=== PATIENT | female | born 2000 | race Two or more races ===

== ENCOUNTER 2024-04-18 15:55 | Emergency (ER) | payer MEDICAID ==
[~2024-04-18] VITALS: Ht 162.6 cm; Wt 65.9 kg
[2024-04-18 20:23] LABS: Basophils # (auto) 0 10 ^3/uL (0-0.2); Basophils % (auto) 0.2 % (0.0-2.0); Eosinophils # (auto) 0 10 ^3/uL (0-0.8); Eosinophils % (auto) 0.2 % (0.0-7.0); Hematocrit 41.3 % (36.0-46.0); Lymphocytes # (auto) 2.4 10 ^3/uL (0.4-5.4); Lymphocytes % (auto) 15.4 % (10.0-50.0); Mean Corpuscular Hemoglobin 31.4 pg (28.0-32.0); Mean Corpuscular Hgb Conc. 33.8 g/dL (32.0-36.0); Mean Corpuscular Volume 92.9 fL (80.0-100.0); Monocytes # (auto) 1.5 10 ^3/uL (0-1.3); Monocytes % (auto) 9.5 % (0.0-12.0); Neutrophils # (auto) 11.6 10 ^3/uL (1.6-8.6); Neutrophils % (auto) 74.7 % (37.0-80.0); Red Blood Cells 4.44 10^6/uL (4.0-5.20); Red Cell Distribution Width 12.8 % (11.8-14.3); White Blood Cell 15.5 10^3/uL (4.4-10.8)
[2024-04-18 20:36] LABS: Alanine Aminotransferase 26 U/L (7-40); Albumin 4.6 g/dL (3.2-4.8); Alkaline Phosphatase 94 U/L (46-116); Anion Gap 7 (5-15); Aspartate Aminotransferase 15 U/L (13-40); BUN/Creatinine Ratio 16.3 (10.0-20.0); Bilirubin, Total 1.3 mg/dL (0.2-1.0); Blood Urea Nitrogen 14 mg/dL (9-23); Calcium 9.8 mg/dL (8.5-10.1); Carbon Dioxide 27 mmol/L (20-30); Chloride 105 mmol/L (98-107); Glucose 86 mg/dL (74-106); Potassium 3.7 mmol/L (3.5-5.1); Sodium 139 mmol/L (136-145); Total Protein 7.2 g/dL (5.7-8.2)
[2024-04-18] MEDS: IOHEXOL 350 MG/ML 100ML IJ ONE (21:39)
[2024-04-18] MEDS ORDERED: DOXY1CAP57 PO (21:40)
[2024-04-18] MEDS ORDERED: AUG875T PO (21:40)
[2024-04-18] MEDS ORDERED: ceFAZolin IM 1GM/2.5ML STERILE WATER IM ONE (21:45)
[2024-04-18] MEDS ORDERED: ceFAZolin 2 GM/D5W50ml 50 ML IV ONE (22:30)
[2024-04-18] MEDS: ceFAZolin 1GM/50ML 50 ML IV ONE (22:55)
[2024-04-18 23:14] VITALS: BP 119/67; PULSE 72; RESP 18; TEMP 98.7; O2SAT 96
[2024-04-20] MEDS ORDERED: ZOFR4T PO (07:28)
[2024-04-20] MEDS ORDERED: NITR-87 PO (08:19)
== END 2024-04-19 00:10 | disposition home or self-care (01) ==
LOC: ER 15:55
DX: S10.93XA Contusion of unspecified part of neck, initial encounter (principal); L03.221 Cellulitis of neck; M54.2 Cervicalgia; Z79.2 Long term (current) use of antibiotics; X58.XXXA Exposure to other specified factors, initial encounter; Y93.89 Activity, other specified; Y92.89 Other specified places as the place of occurrence of the external cause; Y99.8 Other external cause status
CPT/HCPCS: 36415; 70491; 80053; 85025; 96365; 99285; J0690; Q9967

== ENCOUNTER 2024-04-20 05:21 | Emergency (ER) | payer MEDICAID ==
[~2024-04-20] VITALS: Ht 162.6 cm; Wt 64.8 kg
[~2024-04-20 05:21] MED LIST: AUG875T PO; DOXY1CAP57 PO
[2024-04-20 06:22] LABS: Basophils # (auto) 0 10 ^3/uL (0-0.2); Basophils % (auto) 0.4 % (0.0-2.0); Eosinophils # (auto) 0.1 10 ^3/uL (0-0.8); Eosinophils % (auto) 1.3 % (0.0-7.0); Hematocrit 43.7 % (36.0-46.0); Lymphocytes # (auto) 2.5 10 ^3/uL (0.4-5.4); Lymphocytes % (auto) 27.8 % (10.0-50.0); Mean Corpuscular Hemoglobin 32.1 pg (28.0-32.0); Mean Corpuscular Hgb Conc. 34.3 g/dL (32.0-36.0); Mean Corpuscular Volume 93.4 fL (80.0-100.0); Monocytes # (auto) 0.7 10 ^3/uL (0-1.3); Neutrophils # (auto) 5.7 10 ^3/uL (1.6-8.6); Neutrophils % (auto) 62.5 % (37.0-80.0); Red Blood Cells 4.68 10^6/uL (4.0-5.20); Red Cell Distribution Width 12.9 % (11.8-14.3); White Blood Cell 9.1 10^3/uL (4.4-10.8)
[2024-04-20 06:28] LABS: Chloride 102 mmol/L (98-107); Potassium 3.7 mmol/L (3.5-5.1); Sodium 139 mmol/L (136-145)
[2024-04-20 06:29] LABS: Anion Gap 13 (5-15); Carbon Dioxide 24 mmol/L (20-30)
[2024-04-20 06:30] LABS: Calcium 10.1 mg/dL (8.7-10.4)
[2024-04-20 06:34] LABS: BUN/Creatinine Ratio 16.8 (10.0-20.0); Blood Urea Nitrogen 16 mg/dL (9-23); Glucose 75 mg/dL (74-106)
[2024-04-20] MEDS ORDERED: ZOFR4T PO (07:28)
[2024-04-20] MEDS: ONDANSETRON HCL 4 MG/2 ML VIAL IM ONE (07:49)
[2024-04-20 08:16] LABS: Urine Bacteria FEW /hpf (None Seen); Urine Blood 1+ /uL (Negative); Urine Budding Yeast FEW /hpf (None Seen); Urine Clarity Ex.Turbid (Clear); Urine Color Light-Orange (Yellow); Urine Mucus FEW (None Seen); Urine Protein, UAD 2+ (Negative); Urine Specific Gravity 1.021 (1.001-1.035); Urine Urobilinogen 2 mg/dL (Negative); Urine WBC 144 /hpf (0 - 5)
[2024-04-20] MEDS ORDERED: NITR-87 PO (08:19)
[2024-04-20 08:51] VITALS: BP 109/63; PULSE 68; RESP 18; TEMP 98; O2SAT 97
== END 2024-04-20 08:52 | disposition home or self-care (01) ==
LOC: ER 05:21
DX: R11.2 Nausea with vomiting, unspecified (principal); N39.0 Urinary tract infection, site not specified; Z79.2 Long term (current) use of antibiotics; Z79.899 Other long term (current) drug therapy
CPT/HCPCS: 36415; 80048; 81001; 85025; 96372; 99283; J2405